=== PATIENT | male | born 2000 | race Two or more races ===

== ENCOUNTER 2020-11-19 20:12 | Emergency (ER) | payer OTHER ==
[~2020-11-19] VITALS: Ht 167.6 cm; Wt 63.0 kg
--- NOTE | 2020-11-19 20:14 | PHYS DOC ---
Past History Karon Disclaimer This chart was dictated in whole or in part using Voice Recognition software in a busy, high-work load, and often noisy Emergency Department environment. It may contain unintended and wholly unrecognized errors or omissions. General Adult HPI: HPI: ".. I got a dog bite..."." I was out walking my puppy.. Pratima.. she is a [place] Varma... Well another large dog came up and sort of fight with my puppy I trying to use break it up and the other dog bit my right hand"... 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 Patient has puncture hagen to palmar area of hand. Patient states he is a dog when she ran off. Patient did notify police of the bite. Patient normally healthy. Up-to-date vaccinations. Has had Covid vaccination. Patient is right-hand dominant. There is no evidence appears to be grossly intact. Patient denies any recent travel. No history immunosuppression. Patient normally follows at [place] Review of Systems: Review of Systems: Constitutional: Denies fever or chills Eyes: Denies change in visual acuity HENT: Denies nasal congestion or sore throat Respiratory: Denies cough or shortness of breath Cardiovascular: Denies chest pain or edema GI: Denies abdominal pain, nausea, vomiting, bloody stools or diarrhea : Denies dysuria Musculoskeletal: Complains of dog bite right hand Integument: Denies rash Neurologic: Denies headache, focal weakness or sensory changes Endocrine: Denies polyuria or polydipsia Lymphatic: Denies swollen glands Psychiatric: Denies depression or anxiety Family History: Family History: Noncontributory to presentation Current Medications: Current Meds: See nursing for home meds Allergies: Allergies: No known drug allergies Physical Exam: PE: Constitutional: Well developed, well nourished, in moderate acute distress, non- toxic appearance. [] HENT: Normocephalic, atraumatic, bilateral external ears normal, oropharynx moist, no oral exudates, nose normal. [] Eyes: PERRLA, EOMI, conjunctiva normal, no discharge. [] Neck: Normal range of motion, no tenderness, supple, no stridor. [] Cardiovascular:Heart rate regular rhythm, no murmur [] Lungs & Thorax: Bilateral breath sounds clear to auscultation [] Abdomen: Bowel sounds normal, soft, no tenderness, no masses, no pulsatile masses. [] Skin: Warm, dry, no erythema, no rash. Dog bite right hand. Puncture hagen. Swelling. Back: No tenderness, no CVA tenderness. [] Extremities: Right hand tenderness, no cyanosis, no clubbing, ROM intact, right hand edema. [] Distal neurovascular and right hand appears to be equal to left hand. Movement of fingers and right hand appears to be equal to left hand Neurologic: Alert and oriented X 3, normal motor function, normal sensory function, no focal deficits noted. [] Psychologic: Affect anxious, judgement normal, mood normal. [] EKG: EKG: [] Radiology/Procedures: Radiology/Procedures: [][address] [address] IMAGING REPORT Signed PATIENT: OSIRIS LOPEZ ACCOUNT: [id number] : 2000 LOCATION: ER AGE: 19 SEX: M EXAM STATUS: REG ER ORD. PHYSICIAN: MOISES TAPIA MD REASON: dog bite, PROXIMAL MEDIAL SIDE OF HAND PROCEDURE: HAND RIGHT 3V Three-view right hand dated 11/19/2020. No comparison available. Clinical data indication: Dog bite. Pain. FINDINGS: 3 views the right hand show normal bony alignment. No displaced fracture. No periostitis or bone destruction. No acute osseous or articular abnormality. IMPRESSION: No acute findings. Electronically signed by: Jaciel Hernandez MD (11/19/2020 9:02 PM) [facility] [place] AND SIGNED BY: JACIEL HERNANDEZ MD DATE: 11/19/202100 CC: MOISES TAPIA MD; PCP,NO ~MTH0 0 Heart Score: C/O Chest Pain: N/A Risk Factors: Risk Factors: DM, Current or recent (<one month) smoker, HTN, HLP, family history of CAD, obesity. Risk Scores: Score 0 - 3: 2.5% MACE over next 6 weeks - Discharge Home Score 4 - 6: 20.3% MACE over next 6 weeks - Admit for Clinical Observation Score 7 - 10: 72.7% MACE over next 6 weeks - Early Invasive Strategies Course & Med Decision Making: Course & Med Decision Making Pertinent Labs and Imaging studies reviewed. (See chart for details) Procedure note-wound care- Patient washed and extensively with surgical soap and water. Wound then irrigated. Patient had dressing application with antibiotic ointment. Wound will not be sutured because of increased risk of infection. Patient received IM injection of Rocephin. Patient take Augmentin 875 twice a day. Tylenol ibuprofen for pain. Monitor closely for infection. If dog can be found that bit him should be placed in 10 days observation. Do not kill dog because the dog's health is the best indicator of his health. Return if any concerns. Impression: 1. Dog Bite-right hand [] Dragon Disclaimer: Karon Disclaimer: This electronic medical record was generated, in whole or in part, using a voice recognition dictation system. Departure Departure: Referrals: PCP,NO (PCP) Scripts Amoxicillin/Potassium Clav (AUGMENTIN 875-125 TABLET) 1 Each Tablet 1 TAB PO BID for dog for 10 Days, #20 TAB 0 Refills Prov: MOISES TAPIA MD 11/19/20 Hydrocodone/Ibuprofen (HYDROCODONE-IBUPROFEN 7.5-200 ) 1 Each Tablet 1 TAB PO PRN Q6HRS PRN for PAIN, #30 TAB 0 Refills Prov: MOISES TAPIA MD 11/19/20 Bacitracin/Polymyxin B Sulfate (POLYSPORIN OINTMENT) 28.3 Gm Oint...g. 28.3 GM TP QID for dog bite for 30 Days, MISC Prov: MOISES TAPIA MD 11/19/20 Amoxicillin/Potassium Clav (AUGMENTIN 875-125 TABLET) 1 Each Tablet 1 TAB PO BID for dog bite for 10 Days, #20 TAB 0 Refills Prov: MOISES TAPIA MD 11/19/20 Dragon Disclaimer This chart was dictated in whole or in part using Voice Recognition software in a busy, high-work load, and often noisy Emergency Department environment. It may contain unintended and wholly unrecognized errors or omissions. MOISES TAPIA MD Nov 19, 2020 20:14
[2020-11-19 20:41] VITALS: BP 128/70
[2020-11-19] MEDS ORDERED: AMOX1TAB61 PO ×2 (20:50→21:03)
[2020-11-19] MEDS ORDERED: BACI28.34 TP (20:50)
[2020-11-19] MEDS ORDERED: HYDR-1179 PO ×3 (20:50→21:01)
[2020-11-19] MEDS ORDERED: HYDROcodon/IBUPROFEN 7.5/200MG 1 TAB TABLET PO ONE (21:00)
[2020-11-19] MEDS ORDERED: cefTRIAXone IM 1 GM VIAL IM ONE (21:00)
--- NOTE | 2020-11-19 21:05 | RAD ---
Three-view right hand dated 11/19/2020. No comparison available. Clinical data indication: Dog bite. Pain. FINDINGS: 3 views the right hand show normal bony alignment. No displaced fracture. No periostitis or bone dest ruction. No acute osseous or articular abnormality. IMPRESSION: No acute findings. Electronically signed by: Jaciel Hernandez MD (11/19/2020 9:02 PM) [facility]
== END 2020-11-19 21:31 | disposition home or self-care (01) ==
LOC: ER 20:12
DX: S61.431A Puncture wound without foreign body of right hand, initial encounter (principal); W54.0XXA Bitten by dog, initial encounter; Y93.89 Activity, other specified; Y92.89 Other specified places as the place of occurrence of the external cause; Y99.8 Other external cause status
CPT/HCPCS: 73130; 96372; 99283; J0696